=== PATIENT | male | born 1985 | race Caucasian/White ===

== ENCOUNTER 2019-03-15 21:08 | Emergency (ER) | payer OTHER ==
[~2019-03-15] VITALS: Ht 167.6 cm; Wt 72.6 kg
[2019-03-15 21:12] VITALS: BP 130/80
== END 2019-03-15 21:27 | disposition home or self-care (01) ==
LOC: ER 21:15
DX: K04.7 Periapical abscess without sinus (principal); F17.200 Nicotine dependence, unspecified, uncomplicated; Z98.890 Other specified postprocedural states